=== PATIENT | female | born 1945 | race Hispanic/Latino ===

== ENCOUNTER 2019-05-19 11:02 | Outpatient (CLI) | payer MEDICARE ==
--- NOTE | 2019-05-19 13:27 | ULT ---
Exam: Limited soft tissue neck ultrasound HISTORY: Odynophagia, x2 days TECHNIQUE: Targeted sonographic imaging of the renal concern was performed FINDINGS: 0.8 x 0.6 x 1.3 cm soft tissue mass, compatible with a lymph node. IMPRESSION: Enlarged soft tissue neck lymph node, incompletely evaluated. Postcontrast soft tissue ne ck CT is recommended.
== END 2019-05-19 11:03 | disposition home or self-care (01) ==
LOC: NAV ULT 11:02
DX: R13.10 Dysphagia, unspecified (principal); R22.1 Localized swelling, mass and lump, neck
CPT/HCPCS: 76999

== ENCOUNTER 2020-01-13 14:35 | Outpatient (CLI) | payer MEDICARE ==
--- NOTE | 2020-01-13 15:06 | RAD ---
XR Knee Rt 4 View STANDARD HISTORY: Right knee pain FINDINGS: No fracture or dislocation is identified. Mild-moderate degenerative changes are present.
== END 2020-01-13 14:36 | disposition home or self-care (01) ==
LOC: NAV RAD 14:35
PROVIDERS: ATTEND Nurse Practitioner Family
DX: M25.561 Pain in right knee (principal)

== ENCOUNTER 2021-10-07 10:56 | Outpatient (CLI) | payer MEDICARE | END 2021-10-07 10:57 | disposition home or self-care (01) | LOC: NAV RAD 10:56 | PROVIDERS: ATTEND Nurse Practitioner Family | DX: S91.002A Unspecified open wound, left ankle, initial encounter (principal) ==

== ENCOUNTER 2023-09-14 14:23 | Emergency (ER) | payer OTHER ==
[2023-09-14 15:31] LABS: #Basophils 0.1 thou/uL (0.0-0.2); #Eosinphils 0.1 thou/uL (0.0-0.7); #Lymphocytes 0.6 thou/uL (1.20-3.40); #Monocytes 0.9 thou/uL (0.11-0.59); #Neutrophils 9.4 thou/uL (1.40-6.50); %Basophils 0.6 % (0.0-1.0); %Eosinophils 0.5 % (0.0-10.0); %Lymphocytes 5.6 % (21.0-51.0); %Monocytes 8.2 % (0.0-10.0); %Neutrophils 85.1 % (42.0-75.0); Mean Corpuscular HGB CONC 31.9 g/dL (32.0-36.0); Mean Corpuscular Hemoglobin 29.6 pg (27.0-31.0); Mean Corpuscular Volume 92.6 fl (78.0-98.0); Mean Platelet Volume 7.6 fL (7.4-10.4); Platelet Count 331 10x3/uL (130-400); RBC Distribution Width 15.6 % (11.5-14.5)
[2023-09-14 15:45] LABS: Prothrombin Time 13.2 sec (12.0-14.7)
[2023-09-14 15:48] LABS: PTT 89.9 sec (22.9-36.1)
[2023-09-14 15:50] LABS: ALT (SGPT) 18 U/L (8-55); AST (SGOT) 21 U/L (5-34); Albumin 3.8 g/dL (3.4-4.8); Alkaline Phosphatase 114 U/L (40-110); Anion Gap 11 mmol/L (10-20); BUN (Urea Nitrogen) 15 mg/dL (9.8-20.1); Bilirubin, Total 0.4 mg/dL (0.2-1.2); Calc. Creatinine Clearance 0 mL/min (70-130); Calcium 8.6 mg/dL (7.8-10.44); Carbon Dioxide 22 mmol/L (23-31); Chloride 110 mmol/L (98-107); Estimated GFR 41; Globulin 2.7 g/dL (2.4-3.5); Glucose 118 mg/dL (83-110); Potassium 3.3 mmol/L (3.5-5.1); Protein, Total 6.5 g/dL (5.8-8.1); Sodium 140 mmol/L (136-145)
== END 2023-09-14 17:18 | disposition left against medical advice (07) ==
LOC: NAV ERS 14:23
DX: S45.901A Unspecified injury of unspecified blood vessel at shoulder and upper arm level, right arm, initial encounter (principal); S01.01XA Laceration without foreign body of scalp, initial encounter; D64.9 Anemia, unspecified; R00.0 Tachycardia, unspecified; I12.9 Hypertensive chronic kidney disease with stage 1 through stage 4 chronic kidney disease, or unspecified chronic kidney disease; N18.9 Chronic kidney disease, unspecified
CPT/HCPCS: 70450; 80053; 85025; 85610; 85730